=== PATIENT | male | born 2000 | race African-American/Black ===

== ENCOUNTER 2022-01-27 07:55 | Emergency (ER) | payer SELFPAY ==
[~2022-01-27] VITALS: Ht 182.9 cm; Wt 63.5 kg
--- NOTE | 2022-01-27 08:01 | NUR ---
TO ER BED 14. [id number] FROM [facility] FOR DRUG USE, TALKING AND ANSWERING QUESTIONS UPON ARRIVAL. PT VITALS ARE WITHIN NORMAL LIMITS. ABLE TO AMBULATE ON HIS OWN. DR SANCHEZ AT BEDSIDE, AWAITING MD ORDERS.
--- NOTE | 2022-01-27 08:15 | NUR ---
LAB AT BEDSIDE
[2022-01-27 08:33] LABS: BASOPHILS % (AUTO) 0.4 % (0.0-2.0); EOSINOPHILS % (AUTO) 5.1 % (0.0-6.0); HEMATOCRIT 33 % (39-51); HEMOGLOBIN 10.4 g/dL (13.5-17.5); LYMPHOCYTES # (AUTO) 1.9 K/uL (0.8-4.8); LYMPHOCYTES % (AUTO) 20.3 % (20.0-44.0); MEAN CORPUSCULAR HGB CONC 32 g/dl (31.0-36.0); MEAN CORPUSCULAR VOLUME 84 fL (80-96); MONOCYTES % (AUTO) 10.4 % (2.0-12.0); NEUTROPHILS # (AUTO) 6.1 K/uL (1.8-8.9); NEUTROPHILS % (AUTO) 63.8 % (43.0-81.0); PLATELET COUNT (AUTO) 486 K/uL (150-450); WHITE BLOOD COUNT (AUTO) 9.6 K/uL (4.3-11.0)
[2022-01-27 08:56] LABS: ALANINE AMINOTRANSFERASE 25 U/L (12-78); ALBUMIN 2.4 g/dL (3.4-5.0); ALCOHOL, BLOOD < 3 mg/dL (0-0); ALKALINE PHOSPHATASE 69 U/L (46-116); ASPARTATE AMINOTRANSFERASE 27 U/L (15-37); BILIRUBIN,DIRECT 0.1 mg/dL (0.0-0.2); BILIRUBIN,TOTAL 0.3 mg/dL (0.2-1.0); CALCIUM, SERUM 8.6 mg/dL (8.5-10.1); CARBON DIOXIDE 25 mmol/L (21-32); CHLORIDE 103 mmol/L (98-107); CREATININE 0.9 mg/dL (0.6-1.3); GLUCOSE 90 mg/dL (74-106); POTASSIUM 4.3 mmol/L (3.5-5.1); SODIUM SERUM 133 mmol/L (136-145); TOTAL PROTEIN, SERUM 8.8 g/dL (6.4-8.2); UREA NITROGEN, BLOOD 15 mg/dL (7-18)
[2022-01-27] MEDS ORDERED: NALO4SPR BNOSTRILS (09:03)
[2022-01-27 09:05] LABS: ACETAMINOPHEN < 2 ug/ml (10-30)
--- NOTE | 2022-01-27 09:10 | NUR ---
Patient discharged to home in stable condition. Written and verbal after care instructions given. Patient verbalizes understanding of instruction.
[2022-01-27 09:11] VITALS: BP 123/78
== END 2022-01-27 09:11 | disposition home or self-care (01) ==
LOC: ER 07:57
DX: F11.10 Opioid abuse, uncomplicated (principal); R53.83 Other fatigue; Z59.00 Homelessness unspecified
CPT/HCPCS: 36415; 80048-TC; 80076-TC; 85025-TC; G0480